=== PATIENT | male | born 1975 | race Caucasian/White ===

== ENCOUNTER 2020-06-02 13:12 | Emergency (ER) | payer BC ==
[~2020-06-02] VITALS: Ht 175.3 cm; Wt 110.2 kg
[2020-06-02 13:56] VITALS: BP 152/91
[2020-06-02] MEDS ORDERED: IBUP-1957 PO (15:40)
== END 2020-06-02 15:45 | disposition home or self-care (01) ==
LOC: ER 13:18
DX: M54.16 Radiculopathy, lumbar region (principal)
CPT/HCPCS: 72131-TC